=== PATIENT | male | born 1985 | race Caucasian/White ===

== ENCOUNTER 2016-12-05 21:30 | Emergency (ER) | payer SELFPAY ==
--- NOTE | 2016-12-05 23:22 | ED NURSING NOTES ---
Clinical Report - Nurses [facility] [place] [address] 12/05/2016 21:31 Patient: JENNY ROMERO TRIAGE Triage time 22:28. Acuity: LEVEL 3. Chief Complaint: REDNESS, PAIN and FOREIGN BODY TO LEFT EYE. --22:33 Sheriff Ortiz R.N. 22:26 12/05/16. BP: 154/93. HR: 98. RR: 18. O2 saturation: 97%. Temp: 98.8 F. Pain level now: 10/19. --22:33 Sheriff Ortiz R.N. VISUAL ACUITY: Visual acuity performed without corrective lenses: left eye 20/25. --22:36 Sheriff Ortiz R.N. Weight: 113.3 kg stated. Height/Length: 71 inches Per Patient. BMI: 34.9. --22:32 Sheriff Ortiz R.N. Medications None. --22:31 Sheriff Ortiz R.N. Allergies NKDA. --22:31 Sheriff Ortiz R.N. History Arrived by private vehicle. Historian: patient. Accompanied by spouse. This started today. Onset. (9 hours ago). ( Patient was cutting an old fridge with a hawk saw and the freon poured into his eyes. Irritation and redness noted in right eye.). SURGERY HX: No history of previous surgery. SOCIAL HX: Never smoker. Occasional alcohol use. History of drug use: marijuana. FALL RISK ASSESSMENT: Fall risk assessment completed. No fall risk identified. NUTRITIONAL RISK ASSESSMENT: The nutritional risk assessment revealed no deficiencies. FUNCTIONAL ASSESSMENT: Functional assessment: no impairments noted. LEARNING NEEDS ASSESSMENT: The learning needs assessment revealed no barriers. SKIN INTEGRITY ASSESSMENT: Skin integrity risk assessment completed. No skin integrity risk identified. --22:33 Sheriff Ortiz R.N. PROBLEMS: Panic Attack. Diverticulitis. Burn. Tetanus Status. Immunizations. --22:31 Sheriff Ortiz R.N. Interventions ID band on patient. --22:33 Sheriff Ortiz R.N. PHYSICAL ASSESSMENT Ambulatory to room. GENERAL / NEURO / PSYCH: Alert. Appears in no acute distress. HEENT: No facial asymmetry noted. RESPIRATORY: Respirations not labored. CVS: Capillary refill less than 2 seconds. SKIN: Skin is warm and dry. Normal skin turgor. --22:34 Sheriff Ortiz R.N. NURSING PROGRESS NOTES Head of bed elevated. Two patient identifiers checked. Call light placed in reach. Side rails up x 2. Bed placed in lowest position. Brakes of bed on. --22:34 Sheriff Ortiz R.N. 23:07 12/05/2016 Proparacaine Eye Drops 2 drop given. Given in the left eye. Allergies verified and confirmed 5 rights. --23:22 Sheriff Ortiz R.N. ( Left eye irrigated with normal saline.). --23:55 Sheriff Ortiz R.N. DISPOSITION / DISCHARGE Condition at departure: stable. No learning barriers present. Discharge instructions provided and reviewed with the patient. Reviewed medication(s) side effects, precautions, dosing and course information. Prescription(s) given to the parent. Patient verbalized understanding. Written instructions provided in Georgian. The patient was discharged by the physician casino assistant manager. He was discharged home and accompanied by spouse. He left the Emergency Department ambulatory and via private vehicle. Spouse driving. --23:56 Sheriff Ortiz R.N. Locked/Released at 12/05/2016 23:56 by Sheriff Ortiz R.N.
--- NOTE | 2016-12-05 23:22 | ED ORDER SUMMARY ---
..... Patient: JENNY ROMERO OrderSheet [facility] VisitID: [id number] [address] [place] [address] 31y, M Registration Date/Time: 12/05/2016 ORDER SHEET Weight: 113.3 kg (stated) Allergies: NKDA GENERAL ORDERS: MEDICATION ORDERS: Proparacaine Eye Drops (Solution 0.5 %) 2 drops (NOW, affected eye) (22:56 12/05/2016 Maria Ines TOBIAS) (23:22 Elizabeth Mccarthy) IV FLUIDS: ORDER SHEET NOTES: [Electronically signed by Steph Jama PA-C (23:37 12/05/2016)] [Electronically signed by Sheriff Shari Ortiz (23:56 12/05/2016)] [Electronically locked/signed by Sheriff Shari Ortiz (23:56 12/05/2016)]
--- NOTE | 2016-12-05 23:22 | ED CLINICAL REPORT ---
Clinical Report - Physicians/Mid Levels [facility] [address] [place] [address] 12/05/2016 21:31 Patient: JENNY ROMERO Time Seen: 22:40; initial patient contact. Arrived- By private vehicle. Historian- patient. HISTORY OF PRESENT ILLNESS Chief Complaint: EYE PAIN, REDNESS and IRRITATION and INJURY chemical eye injury. This started just prior to arrival. Patient was cutting an old fridge with a hawk saw and the freon poured into his eyes. Irritation and redness noted in right eye.). ppt spoke to poison control, they urged visit to eye doctor after copious irrigation which they did. no change in vision...mild pain, irritation and medial redness. no contact lenses. The patient has had liquid chemical exposure involving the left eye (Freon). Eyes irrigated on-scene. Not injured from contact lenses. Eye discomfort, burning, redness and irritation. Mild right and left eyelid swelling (from freon). No blurred vision, double vision, decreased vision or loss of vision. REVIEW OF SYSTEMS All systems otherwise negative, except as recorded above. PAST HISTORY See nurses notes. No history of prior eye injury, diabetes mellitus or glaucoma. Tetanus immunization status is up-to-date. Additional Surgeries: no known surgeries. Medications: None. Allergies: NKDA. SOCIAL HISTORY Never smoker. Alcohol use. History of occasional drug use: marijuana. ADDITIONAL NOTES The nursing notes have been reviewed with agreement regarding the chief complaint, HPI, ROS, PMH and patient medications and allergies. PHYSICAL EXAM Vital Signs: Have been reviewed. Appearance: Alert. Oriented X3. No acute distress. HEENT: Ears normal. Nose normal. Pharynx normal. Head appears normal to external inspection. Rt Eye: Mild eyelid edema. Eyes: Left conjunctiva: mild swelling of the medial aspect of the conjunctiva. Lt Eye: Mild eyelid edema. Mildly injected conjunctiva. No exudate present. No subconjunctival hemorrhage, conjunctival foreign body or injury to the conjunctiva or sclera. No corneal foreign body or abrasion. Skin: No rash. PROGRESS AND PROCEDURES Eye Irrigation: Time: 22:55. Irrigation of the left eye was performed after topical anesthesia with Proparacaine, using copious amounts of saline. Equipment used included IV tubing. Post-procedure the patient was stable. Course of Care: copious irrigation with NS to the eye with improvement. Patient is stable. Physical exam findings are improved. Symptoms better. Patient/family counseled. CLINICAL IMPRESSION Accidental acute chemical exposure (petroleum product) to the left eye. Chemical conjunctivitis of the left eye. (freon). Multiple first degree chemical campbell to the right and left eyelid and to the right and left periorbital area. BSA of 1st degree burn = 0%. (with freon). copious irrigation with NS done with improved redness. INSTRUCTIONS Rest. No dietary restrictions. (continue to irrigate with NS as needed with the tubiing set up you were given on discharge. if increased irritation, see opthalmology or return to the ER.). Warnings: Further evaluation is necessary. It is very important to follow up with a physician. GENERAL WARNINGS: Return or contact your physician immediately if your condition worsens or changes unexpectedly, if not improving as expected, or if other problems arise. OTC Medications: Lacri-Lube ophthalmic ointment (available over the counter): apply 0.5 inch to inner aspect of the lower lid on the affected eye every 2 hours while awake as needed for irritation or dryness until symptoms improve. Dispense one (1) tube. No refill. Substitution is permissible. Follow-up: Follow up with an signal intelligence analyst Wednesday if not better. Understanding of the discharge instructions verbalized by patient. (Electronically signed by Steph Jama PA-C 12/05/2016 23:37)
--- NOTE | 2016-12-05 23:22 | ED CLINICAL REPORT ---
Clinical Report - Physicians/Mid Levels [facility] [address] [place] [address] 12/05/2016 21:31 Patient: JENNY ROMERO Time Seen: 22:40; initial patient contact. Arrived- By private vehicle. Historian- patient. HISTORY OF PRESENT ILLNESS Chief Complaint: EYE PAIN, REDNESS and IRRITATION and INJURY chemical eye injury. This started just prior to arrival. Patient was cutting an old fridge with a hawk saw and the freon poured into his eyes. Irritation and redness noted in right eye.). ppt spoke to poison control, they urged visit to eye doctor after copious irrigation which they did. no change in vision...mild pain, irritation and medial redness. no contact lenses. The patient has had liquid chemical exposure involving the left eye (Freon). Eyes irrigated on-scene. Not injured from contact lenses. Eye discomfort, burning, redness and irritation. Mild right and left eyelid swelling (from freon). No blurred vision, double vision, decreased vision or loss of vision. REVIEW OF SYSTEMS All systems otherwise negative, except as recorded above. PAST HISTORY See nurses notes. No history of prior eye injury, diabetes mellitus or glaucoma. Tetanus immunization status is up-to-date. Additional Surgeries: no known surgeries. Medications: None. Allergies: NKDA. SOCIAL HISTORY Never smoker. Alcohol use. History of occasional drug use: marijuana. ADDITIONAL NOTES The nursing notes have been reviewed with agreement regarding the chief complaint, HPI, ROS, PMH and patient medications and allergies. PHYSICAL EXAM Vital Signs: Have been reviewed. Appearance: Alert. Oriented X3. No acute distress. HEENT: Ears normal. Nose normal. Pharynx normal. Head appears normal to external inspection. Rt Eye: Mild eyelid edema. Eyes: Left conjunctiva: mild swelling of the medial aspect of the conjunctiva. Lt Eye: Mild eyelid edema. Mildly injected conjunctiva. No exudate present. No subconjunctival hemorrhage, conjunctival foreign body or injury to the conjunctiva or sclera. No corneal foreign body or abrasion. Skin: No rash. PROGRESS AND PROCEDURES Eye Irrigation: Time: 22:55. Irrigation of the left eye was performed after topical anesthesia with Proparacaine, using copious amounts of saline. Equipment used included IV tubing. Post-procedure the patient was stable. Course of Care: copious irrigation with NS to the eye with improvement. Patient is stable. Physical exam findings are improved. Symptoms better. Patient/family counseled. CLINICAL IMPRESSION Accidental acute chemical exposure (petroleum product) to the left eye. Chemical conjunctivitis of the left eye. (freon). Multiple first degree chemical campbell to the right and left eyelid and to the right and left periorbital area. BSA of 1st degree burn = 0%. (with freon). copious irrigation with NS done with improved redness. INSTRUCTIONS Rest. No dietary restrictions. (continue to irrigate with NS as needed with the tubiing set up you were given on discharge. if increased irritation, see opthalmology or return to the ER.). Warnings: Further evaluation is necessary. It is very important to follow up with a physician. GENERAL WARNINGS: Return or contact your physician immediately if your condition worsens or changes unexpectedly, if not improving as expected, or if other problems arise. OTC Medications: Lacri-Lube ophthalmic ointment (available over the counter): apply 0.5 inch to inner aspect of the lower lid on the affected eye every 2 hours while awake as needed for irritation or dryness until symptoms improve. Dispense one (1) tube. No refill. Substitution is permissible. Follow-up: Follow up with an therapeutic mentor Wednesday if not better. Understanding of the discharge instructions verbalized by patient. (Electronically signed by Steph Jama PA-C 12/05/2016 23:37)
--- NOTE | 2016-12-05 23:22 | ED NURSING NOTES ---
Clinical Report - Nurses [facility] [place] [address] 12/05/2016 21:31 Patient: JENNY ROMERO TRIAGE Triage time 22:28. Acuity: LEVEL 3. Chief Complaint: REDNESS, PAIN and FOREIGN BODY TO LEFT EYE. --22:33 Sheriff Ortiz R.N. 22:26 12/05/16. BP: 154/93. HR: 98. RR: 18. O2 saturation: 97%. Temp: 98.8 F. Pain level now: 10/19. --22:33 Sheriff Ortiz R.N. VISUAL ACUITY: Visual acuity performed without corrective lenses: left eye 20/25. --22:36 Sheriff Ortiz R.N. Weight: 113.3 kg stated. Height/Length: 71 inches Per Patient. BMI: 34.9. --22:32 Sheriff Ortiz R.N. Medications None. --22:31 Sheriff Ortiz R.N. Allergies NKDA. --22:31 Sheriff Ortiz R.N. History Arrived by private vehicle. Historian: patient. Accompanied by spouse. This started today. Onset. (9 hours ago). ( Patient was cutting an old fridge with a hawk saw and the freon poured into his eyes. Irritation and redness noted in right eye.). SURGERY HX: No history of previous surgery. SOCIAL HX: Never smoker. Occasional alcohol use. History of drug use: marijuana. FALL RISK ASSESSMENT: Fall risk assessment completed. No fall risk identified. NUTRITIONAL RISK ASSESSMENT: The nutritional risk assessment revealed no deficiencies. FUNCTIONAL ASSESSMENT: Functional assessment: no impairments noted. LEARNING NEEDS ASSESSMENT: The learning needs assessment revealed no barriers. SKIN INTEGRITY ASSESSMENT: Skin integrity risk assessment completed. No skin integrity risk identified. --22:33 Sheriff Ortiz R.N. PROBLEMS: Panic Attack. Diverticulitis. Burn. Tetanus Status. Immunizations. --22:31 Sheriff Ortiz R.N. Interventions ID band on patient. --22:33 Sheriff Ortiz R.N. PHYSICAL ASSESSMENT Ambulatory to room. GENERAL / NEURO / PSYCH: Alert. Appears in no acute distress. HEENT: No facial asymmetry noted. RESPIRATORY: Respirations not labored. CVS: Capillary refill less than 2 seconds. SKIN: Skin is warm and dry. Normal skin turgor. --22:34 Sheriff Ortiz R.N. NURSING PROGRESS NOTES Head of bed elevated. Two patient identifiers checked. Call light placed in reach. Side rails up x 2. Bed placed in lowest position. Brakes of bed on. --22:34 Sheriff Ortiz R.N. 23:07 12/05/2016 Proparacaine Eye Drops 2 drop given. Given in the left eye. Allergies verified and confirmed 5 rights. --23:22 Sheriff Ortiz R.N. ( Left eye irrigated with normal saline.). --23:55 Sheriff Ortiz R.N. DISPOSITION / DISCHARGE Condition at departure: stable. No learning barriers present. Discharge instructions provided and reviewed with the patient. Reviewed medication(s) side effects, precautions, dosing and course information. Prescription(s) given to the parent. Patient verbalized understanding. Written instructions provided in Hungarian. The patient was discharged by the physician captain's assistant. He was discharged home and accompanied by spouse. He left the Emergency Department ambulatory and via private vehicle. Spouse driving. --23:56 Sheriff Ortiz R.N. Locked/Released at 12/05/2016 23:56 by Sheriff Ortiz R.N.
--- NOTE | 2016-12-05 23:22 | ED ORDER SUMMARY ---
..... Patient: JENNY ROMERO OrderSheet [facility] VisitID: [id number] [address] [place] [address] 31y, M Registration Date/Time: 12/05/2016 ORDER SHEET Weight: 113.3 kg (stated) Allergies: NKDA GENERAL ORDERS: MEDICATION ORDERS: Proparacaine Eye Drops (Solution 0.5 %) 2 drops (NOW, affected eye) (22:56 12/05/2016 Maria Ines TOBIAS) (23:22 Elizabeth Mccarthy) IV FLUIDS: ORDER SHEET NOTES: [Electronically signed by Steph Jama PA-C (23:37 12/05/2016)] [Electronically signed by Sheriff Shari Ortiz (23:56 12/05/2016)] [Electronically locked/signed by Sheriff Shari Ortiz (23:56 12/05/2016)]
--- NOTE | 2016-12-05 23:57 | ED MED RECONCILIATION SUMMARY ---
Patient: JENNY ROMERO Medication Reconciliation Report [facility] VisitID: [id number] [place] [address] 31y, M Registration Date/Time: 12/05/2016 Weight: 113.3 kg Height/Length: 71 in. BMI: 34.9 ALLERGIES: NKDA The patient's Home Medications are listed below: NONE. The source(s) of the original Home Medication information: Not obtained. The following Medications were given to the patient in the Emergency Department: Proparacaine [Eye Drops] Eye Drops 2 drop, administered: 12/05/2016 11:07:00 PM The following Medications were prescribed to the patient: Lacri-Lube ophthalmic ointment (available over the counter): apply 0.5 inch to inner aspect of the lower lid on the affected eye every 2 hours while awake as needed for irritation or dryness until symptoms improve. Dispense one (1) tube. No refill. Substitution is permissible. -- Steph Jama PA-C
--- NOTE | 2016-12-05 23:57 | ED DISCHARGE INSTRUCTIONS ---
Patient: JENNY ROMERO General Instructions [facility] VisitID: [id number] [place] [address] 31y, M Registration Date/Time: 12/05/2016 Accidental acute chemical exposure (petroleum product) to the left eye. Chemical conjunctivitis of the left eye. (freon). Multiple first degree chemical campbell to the right and left eyelid and to the right and left periorbital area. BSA of 1st degree burn = 0%. (with freon). copious irrigation with NS done with improved redness. INSTRUCTIONS Rest. No dietary restrictions. (continue to irrigate with NS as needed with the tubiing set up you were given on discharge. if increased irritation, see opthalmology or return to the ER.). Warnings: Further evaluation is necessary. It is very important to follow up with a physician. GENERAL WARNINGS: Return or contact your physician immediately if your condition worsens or changes unexpectedly, if not improving as expected, or if other problems arise. OTC Medications: Lacri-Lube ophthalmic ointment (available over the counter): apply 0.5 inch to inner aspect of the lower lid on the affected eye every 2 hours while awake as needed for irritation or dryness until symptoms improve. Dispense one (1) tube. No refill. Substitution is permissible. Follow-up: Follow up with an child care counselor Wednesday if not better. Understanding of the discharge instructions verbalized by patient. ADDITIONAL INFORMATION Chemical Exposure: Eye You had a chemical exposure to your eye. The effects can range from mild irritation to permanent scarring and vision loss. The type of chemical, how concentrated it was, whether it was an acid or a base, and how long it was in your eye will determine the degree of injury. It is common to have some irritation for the next 24 hours, even in mild cases. If the exposure was more serious, be sure to follow up as directed. The pressure inside of the eye can increase hours to days after a chemical eye injury (glaucoma). This requires prompt treatment. Watch for the symptoms below. Home Care: 1) A cold pack (ice in a plastic bag, wrapped in a towel) may be applied over the eye for 20 minutes at a time. This will reduce pain. 2) Eye drops may be prescribed to reduce irritation, inflammation and risk of infection. If no drops were prescribed, you may use Visine, Vasocon or similar [id number] decongestant eye drops for irritation or redness. 3 ) You may use acetaminophen (Tylenol) or ibuprofen (Motrin, Advil) to control pain, unless another medicine was prescribed. [ NOTE : If you have chronic liver or kidney disease or ever had a stomach ulcer or GI bleeding, talk with your doctor before using these medicines.] 4) If an EYE PATCH was applied: -- You may place the ice pack over the eye-patch. -- If you were given a return appointment for patch removal and re-exam, do not miss it. An eye patch should not be left in place for more than 48 hours, unless you are advised to do so by your doctor. -- DO NOT DRIVE a motor vehicle or use machinery with the patch in place. It is difficult to bulb assembler distance with only one eye. Follow Up with your doctor or this facility as directed, or if your symptoms have not improved after 24 hours. Get Prompt Medical Attention if any of the following occur: -- Increased eyelid swelling -- Increasing pain in the eye -- Increasing redness or drainage from the eye -- Failure of normal vision to return within 24-48 hours -- Continued feeling like something is in your eye, lasting more than 48 hours You have been given the following additional information: Eye Exposure, Chemical Rest. (Electronically signed by Steph Jama PA-C 12/05/2016 23:37)
--- NOTE | 2016-12-05 23:57 | ED MAR SUMMARY ---
..... Medication Administration Record [facility] [address] [place] [address] Patient: JENNY ROMERO Visit ID: [id number] 31y, M Weight: 113.3 kg Height/Length: 71 in BMI: 34.9 ALLERGIES: NKDA Given 23:07 12/05/2016 Sheriff Ortiz R.N. Medication Administered: PROPARACAINE [EYE DROPS], Dose: 2 drop Eye Drops. Medication Ordered: Proparacaine Eye Drops (Solution 0.5 %) 2 drops (NOW, affected eye).
--- NOTE | 2016-12-05 23:57 | ED MAR SUMMARY ---
..... Medication Administration Record [facility] [address] [place] [address] Patient: JENNY ROMERO Visit ID: [id number] 31y, M Weight: 113.3 kg Height/Length: 71 in BMI: 34.9 ALLERGIES: NKDA Given 23:07 12/05/2016 Sheriff Ortiz R.N. Medication Administered: PROPARACAINE [EYE DROPS], Dose: 2 drop Eye Drops. Medication Ordered: Proparacaine Eye Drops (Solution 0.5 %) 2 drops (NOW, affected eye).
--- NOTE | 2016-12-05 23:57 | ED DISCHARGE INSTRUCTIONS ---
Patient: JENNY ROMERO General Instructions [facility] VisitID: [id number] [place] [address] 31y, M Registration Date/Time: 12/05/2016 Accidental acute chemical exposure (petroleum product) to the left eye. Chemical conjunctivitis of the left eye. (freon). Multiple first degree chemical campbell to the right and left eyelid and to the right and left periorbital area. BSA of 1st degree burn = 0%. (with freon). copious irrigation with NS done with improved redness. INSTRUCTIONS Rest. No dietary restrictions. (continue to irrigate with NS as needed with the tubiing set up you were given on discharge. if increased irritation, see opthalmology or return to the ER.). Warnings: Further evaluation is necessary. It is very important to follow up with a physician. GENERAL WARNINGS: Return or contact your physician immediately if your condition worsens or changes unexpectedly, if not improving as expected, or if other problems arise. OTC Medications: Lacri-Lube ophthalmic ointment (available over the counter): apply 0.5 inch to inner aspect of the lower lid on the affected eye every 2 hours while awake as needed for irritation or dryness until symptoms improve. Dispense one (1) tube. No refill. Substitution is permissible. Follow-up: Follow up with an borough coordinator Wednesday if not better. Understanding of the discharge instructions verbalized by patient. ADDITIONAL INFORMATION Chemical Exposure: Eye You had a chemical exposure to your eye. The effects can range from mild irritation to permanent scarring and vision loss. The type of chemical, how concentrated it was, whether it was an acid or a base, and how long it was in your eye will determine the degree of injury. It is common to have some irritation for the next 24 hours, even in mild cases. If the exposure was more serious, be sure to follow up as directed. The pressure inside of the eye can increase hours to days after a chemical eye injury (glaucoma). This requires prompt treatment. Watch for the symptoms below. Home Care: 1) A cold pack (ice in a plastic bag, wrapped in a towel) may be applied over the eye for 20 minutes at a time. This will reduce pain. 2) Eye drops may be prescribed to reduce irritation, inflammation and risk of infection. If no drops were prescribed, you may use Visine, Vasocon or similar susq-stn-vwdyndy decongestant eye drops for irritation or redness. 3 ) You may use acetaminophen (Tylenol) or ibuprofen (Motrin, Advil) to control pain, unless another medicine was prescribed. [ NOTE : If you have chronic liver or kidney disease or ever had a stomach ulcer or GI bleeding, talk with your doctor before using these medicines.] 4) If an EYE PATCH was applied: -- You may place the ice pack over the eye-patch. -- If you were given a return appointment for patch removal and re-exam, do not miss it. An eye patch should not be left in place for more than 48 hours, unless you are advised to do so by your doctor. -- DO NOT DRIVE a motor vehicle or use machinery with the patch in place. It is difficult to sales service technician distance with only one eye. Follow Up with your doctor or this facility as directed, or if your symptoms have not improved after 24 hours. Get Prompt Medical Attention if any of the following occur: -- Increased eyelid swelling -- Increasing pain in the eye -- Increasing redness or drainage from the eye -- Failure of normal vision to return within 24-48 hours -- Continued feeling like something is in your eye, lasting more than 48 hours You have been given the following additional information: Eye Exposure, Chemical Rest. (Electronically signed by Steph Jama PA-C 12/05/2016 23:37)
--- NOTE | 2016-12-05 23:57 | ED MED RECONCILIATION SUMMARY ---
Patient: JENNY ROMERO Medication Reconciliation Report [facility] VisitID: [id number] [place] [address] 31y, M Registration Date/Time: 12/05/2016 Weight: 113.3 kg Height/Length: 71 in. BMI: 34.9 ALLERGIES: NKDA The patient's Home Medications are listed below: NONE. The source(s) of the original Home Medication information: Not obtained. The following Medications were given to the patient in the Emergency Department: Proparacaine [Eye Drops] Eye Drops 2 drop, administered: 12/05/2016 11:07:00 PM The following Medications were prescribed to the patient: Lacri-Lube ophthalmic ointment (available over the counter): apply 0.5 inch to inner aspect of the lower lid on the affected eye every 2 hours while awake as needed for irritation or dryness until symptoms improve. Dispense one (1) tube. No refill. Substitution is permissible. -- Steph Jama PA-C
== END 2016-12-05 22:25 | disposition home or self-care (01) ==
LOC: ED SRH 21:30
DX: T52.0X1A Toxic effect of petroleum products, accidental (unintentional), initial encounter (principal); T26.51XA Corrosion of right eyelid and periocular area, initial encounter; T26.52XA Corrosion of left eyelid and periocular area, initial encounter; T53.5X1A Toxic effect of chlorofluorocarbons, accidental (unintentional), initial encounter; H10.212 Acute toxic conjunctivitis, left eye; Z77.098 Contact with and (suspected) exposure to other hazardous, chiefly nonmedicinal, chemicals; Y93.89 Activity, other specified; Y99.9 Unspecified external cause status; Y92.9 Unspecified place or not applicable